=== PATIENT | male | born 1965 | race Caucasian/White ===

== ENCOUNTER 2022-05-26 13:14 | Inpatient (IN) | payer MEDICAID ==
[~2022-05-26] VITALS: Ht 162.6 cm; Wt 77.1 kg
[2022-05-26] MEDS ORDERED: ONDANSETRON HCL 4MG/2ML INJ IV STA (14:27)
[2022-05-26] MEDS ORDERED: MORPHINE SULFATE 4 MG/ML CPJ (NOT FOR IM USE) IV STA (14:27)
[2022-05-26] MEDS ORDERED: SODIUM CHLORIDE 0.9% 1,000 ML IV ONE (14:30)
[2022-05-26 14:50] LABS: BASOPHILS % 0.6 % (0.0-2.0); EOSINOPHILS % 0.5 % (0.0-5.0); HEMATOCRIT. 38.1 % (42.0-52.0); HEMOGLOBIN. 12.6 g/dL (14.0-18.0); LYMPHOCYTES % 17.8 % (20.0-50.0); MEAN CORPUSCULAR HEMOGLOBIN 31.3 pg (28.0-32.0); MEAN CORPUSCULAR VOLUME 94.3 fL (80.0-94.0); MEAN PLATELET VOLUME 8.6 fl (7.4-10.4); MONOCYTES % 7.8 % (2.0-8.0); NEUTROPHILS % 73.3 % (40.0-76.0); PLATELET 163 x1000/uL (130-400); RED BLOOD CELL COUNT 4.04 mill/uL (4.7-6.1); RED CELL DISTRIBUTION WIDTH 14.7 % (11.6-14.6)
[2022-05-26 14:58] LABS: CHLORIDE 104 mEq/L (98-107)
[2022-05-26 14:59] LABS: INR 1.3; PROTHROMBIN TIME 13.4 sec (9.6-11.0)
[2022-05-26] MEDS ORDERED: PIPERACILLIN/TAZ 3.375G PREMIX 50 ML IV NR (15:30)
[2022-05-26] MEDS ORDERED: SODIUM CHLORIDE 0.9% 1000ML BAG (SEPSIS BOLUS) IV NR (15:30)
[2022-05-26] MEDS ORDERED: SODIUM CHLORIDE 0.9% 1000ML BAG (SEPSIS BOLUS) IV ONE (15:30)
[2022-05-26] MEDS ORDERED: KETOROLAC 30MG/ML VIAL IV ONE (16:00)
[2022-05-26 16:27] LABS: CLARITY URINE CLEAR (CLEAR); COLOR URINE DARK YELLOW (YELLOW); KETONES URINE TRACE (NEGATIVE); LEUKOCYTE ESTERASE URINE TRACE (NEGATIVE); NITRITE URINE NEGATIVE (NEGATIVE); OCCULT BLOOD URINE NEGATIVE (NEGATIVE); PROTEIN URINE TRACE (NEGATIVE); SPECIFIC GRAVITY URINE 1.034 (1.005-1.030)
[2022-05-26 22:30] VITALS: BP 160/78
[2022-05-26] MEDS ORDERED: DEXTROSE 50% WATER 50ML SYRINGE IV PRN (23:30)
[2022-05-26] MEDS: ENOXAPARIN 40MG/0.4ML SYR SUBCUT SCH (23:56)
[2022-05-27] VITALS: BP 119/71
[2022-05-27 04:00] VITALS: BP 126/82
[2022-05-27] MEDS: PIPERACILLIN/TAZOBACTAM 3.375 G in DEXTROSE 5% WATER 50 ML IV SCH ×3 (06:04→21:18)
[2022-05-27 07:23] LABS: BASOPHILS % 1.1 % (0.0-2.0); EOSINOPHILS % 3.4 % (0.0-5.0); HEMATOCRIT. 31.7 % (42.0-52.0); HEMOGLOBIN. 10.7 g/dL (14.0-18.0); LYMPHOCYTES % 25.6 % (20.0-50.0); MEAN CORPUSCULAR HEMOGLOBIN 32.1 pg (28.0-32.0); MEAN CORPUSCULAR VOLUME 95.2 fL (80.0-94.0); MEAN PLATELET VOLUME 8.2 fl (7.4-10.4); MONOCYTES % 13.2 % (2.0-8.0); NEUTROPHILS % 56.7 % (40.0-76.0); PLATELET 119 x1000/uL (130-400); RED BLOOD CELL COUNT 3.33 mill/uL (4.7-6.1); RED CELL DISTRIBUTION WIDTH 14.7 % (11.6-14.6)
[2022-05-27 07:28] LABS: CHLORIDE 111 mEq/L (98-107)
[2022-05-27] MEDS: BLOOD SUGAR DIAGNOSTIC STRIP TEST SCH ×4 (07:41→21:16)
[2022-05-27 08:00] VITALS: BP 138/90
[2022-05-27] MEDS: LISINOPRIL 20MG TABLET PO SCH (08:36)
[2022-05-27] MEDS: METFORMIN HCL 500MG TABLET PO SCH ×2 (08:36→17:51)
[2022-05-27] MEDS: ENOXAPARIN 40MG/0.4ML SYR SUBCUT SCH (08:37)
[2022-05-27] MEDS: INSULIN LISPRO 100 UNITS/ML SUBCUT SCH ×4 (08:44→21:16)
[2022-05-27] MEDS ORDERED: ASPIRIN 81MG TABLET PO SCH (09:00)
[2022-05-27] MEDS ORDERED: INFLUENZA VACCINE 05/PF 0.5 ML SYRINGE IM ONE (11:00)
[2022-05-27 12:00] VITALS: BP 113/85
[2022-05-27] MEDS: FUROSEMIDE 40MG TABLET PO SCH ×2 (12:50→20:45)
[2022-05-27] MEDS ORDERED: INSULIN GLARGINE 100 UNITS/ML SUBCUT NR (13:18)
[2022-05-27 16:00] VITALS: BP 124/76
[2022-05-27 20:00] VITALS: BP 106/73
[2022-05-27] MEDS: INSULIN GLARGINE 100 UNITS/ML SUBCUT SCH (21:21)
[2022-05-28] VITALS: BP 108/70
[2022-05-28] MEDS: HYDROCODONE/ACETAMINOPHEN 5/325MG TABLET PO PRN ×4 (04:46→22:21)
[2022-05-28] MEDS: PIPERACILLIN/TAZOBACTAM 3.375 G in DEXTROSE 5% WATER 50 ML IV SCH (05:52)
[2022-05-28] MEDS: BLOOD SUGAR DIAGNOSTIC STRIP TEST SCH ×4 (06:47→21:16)
[2022-05-28] MEDS: INSULIN LISPRO 100 UNITS/ML SUBCUT SCH ×4 (07:50→21:00)
[2022-05-28] MEDS: ENOXAPARIN 40MG/0.4ML SYR SUBCUT SCH (07:57)
[2022-05-28 08:00] VITALS: BP 88/54
[2022-05-28] MEDS: LISINOPRIL 20MG TABLET PO SCH (09:00)
[2022-05-28] MEDS: SPIRONOLACTONE 25MG TABLET PO SCH (09:00)
[2022-05-28] MEDS: METFORMIN HCL 500MG TABLET PO SCH ×2 (09:04→17:50)
[2022-05-28] MEDS: FUROSEMIDE 40MG TABLET PO SCH ×2 (09:04→21:15)
[2022-05-28] MEDS: INSULIN GLARGINE 100 UNITS/ML SUBCUT SCH ×2 (10:32→21:17)
[2022-05-28 12:00] VITALS: BP 105/72
[2022-05-28] MEDS: MEROPENEM 1,000 MG in SODIUM CHLORIDE 0.9% 100 ML IV SCH ×2 (15:02→21:16)
[2022-05-28] MEDS: LACTULOSE 20G/30ML UDC PO SCH ×2 (15:03→21:15)
[2022-05-28 16:00] VITALS: BP 119/76
[2022-05-28 20:00] VITALS: BP 144/57
[2022-05-28] MEDS ORDERED: NALOXONE HCL 0.4MG/ML VIAL IV PRN (22:00)
[2022-05-29] VITALS: BP 140/81
[2022-05-29 04:00] VITALS: BP 99/66
[2022-05-29] MEDS: LACTULOSE 20G/30ML UDC PO SCH ×2 (05:39→14:00)
[2022-05-29] MEDS: MEROPENEM 1,000 MG in SODIUM CHLORIDE 0.9% 100 ML IV SCH ×2 (05:39→16:00)
[2022-05-29 06:58] LABS: HEMATOCRIT. 33.7 % (42.0-52.0); HEMOGLOBIN. 11.2 g/dL (14.0-18.0); MEAN CORPUSCULAR HEMOGLOBIN 31.2 pg (28.0-32.0); MEAN CORPUSCULAR VOLUME 93.5 fL (80.0-94.0); PLATELET 131 x1000/uL (130-400); RED CELL DISTRIBUTION WIDTH 14.7 % (11.6-14.6)
[2022-05-29 07:36] LABS: CHLORIDE 106 mEq/L (98-107)
[2022-05-29] MEDS ORDERED: LIDOCAINE HCL 1% 30ML VIAL (10MG/ML) ONE (07:36)
[2022-05-29] MEDS: INSULIN LISPRO 100 UNITS/ML SUBCUT SCH ×2 (07:50→13:10)
[2022-05-29] MEDS: BLOOD SUGAR DIAGNOSTIC STRIP TEST SCH ×2 (07:53→13:08)
[2022-05-29 08:00] VITALS: BP 134/101
[2022-05-29] MEDS: LISINOPRIL 20MG TABLET PO SCH (09:04)
[2022-05-29] MEDS: METFORMIN HCL 500MG TABLET PO SCH (09:04)
[2022-05-29] MEDS: FUROSEMIDE 40MG TABLET PO SCH (09:04)
[2022-05-29] MEDS: SPIRONOLACTONE 25MG TABLET PO SCH (09:04)
[2022-05-29] MEDS: HYDROCODONE/ACETAMINOPHEN 5/325MG TABLET PO PRN (09:14)
[2022-05-29] MEDS ORDERED: LIDOCAINE HCL 1% 10 MG/ML 10ML VIAL ONE (09:37)
[2022-05-29] MEDS: INSULIN GLARGINE 100 UNITS/ML SUBCUT SCH (10:00)
[2022-05-29] MEDS ORDERED: FURO-151 MT (11:12)
[2022-05-29] MEDS ORDERED: SPIR50TA5 MT (11:12)
[2022-05-29 12:00] VITALS: BP 96/65
[2022-05-29 16:00] VITALS: BP 106/68
[2022-05-29 16:07] VITALS: BP 106/68
[2022-05-29 18:41] LABS: PLATELET ESTIMATE NORMAL
== END 2022-05-29 16:29 | disposition home health service (06) | DRG 720 ==
LOC: ER 13:18 → 6EST 16:26 → ER 21:20
PROVIDERS: ADMIT Internal Medicine; ATTEND Internal Medicine
PROC: 0W9G3ZZ Drainage of Peritoneal Cavity, Percutaneous Approach (ICD-10-PCS; principal; 2022-05-29)
PROC: 02HV33Z Insertion of Infusion Device into Superior Vena Cava, Percutaneous Approach (ICD-10-PCS; 2022-05-29)
PROC: B548ZZA Ultrasonography of Superior Vena Cava, Guidance (ICD-10-PCS; 2022-05-29)
PROC: B5181ZA Fluoroscopy of Superior Vena Cava using Low Osmolar Contrast, Guidance (ICD-10-PCS; 2022-05-29)
DX: A41.9 Sepsis, unspecified organism (principal); R18.8 Other ascites; E44.0 Moderate protein-calorie malnutrition; K74.60 Unspecified cirrhosis of liver; N39.0 Urinary tract infection, site not specified; D64.9 Anemia, unspecified; E11.65 Type 2 diabetes mellitus with hyperglycemia; B96.20 Unspecified Escherichia coli [E. coli] as the cause of diseases classified elsewhere; F10.21 Alcohol dependence, in remission; Z20.822 Contact with and (suspected) exposure to COVID-19; I10 Essential (primary) hypertension; F17.200 Nicotine dependence, unspecified, uncomplicated; Z68.30 Body mass index [BMI] 30.0-30.9, adult; Z68.29 Body mass index [BMI] 29.0-29.9, adult
CPT/HCPCS: 36415; 36573; 49083; 71045; 74176; 80048; 80053; 81003; 82962; 83036; 83605; 84145; 85025; 87186; 87426; 93005; 99291; C1725; C1760; J1650; J1815; J1885; J2185; J2270; J2405; J2543; J3490; J7030; J7050; J7060

== ENCOUNTER 2022-06-30 12:52 | Inpatient (IN) | payer MEDICAID ==
[~2022-06-30] VITALS: Ht 167.6 cm; Wt 66.7 kg
[~2022-06-30 12:52] MED LIST: FURO-151 MT; SPIR50TA5 MT
[2022-07-01 03:28] LABS: INR 1.2; PROTHROMBIN TIME 12.7 sec (9.6-11.0)
[2022-07-01 03:34] LABS: BASOPHILS % 0.9 % (0.0-2.0); EOSINOPHILS % 3.5 % (0.0-5.0); HEMOGLOBIN. 11.5 g/dL (14.0-18.0); LYMPHOCYTES % 25.5 % (20.0-50.0); MEAN CORPUSCULAR HEMOGLOBIN 31.5 pg (28.0-32.0); MEAN CORPUSCULAR VOLUME 93.3 fL (80.0-94.0); MEAN PLATELET VOLUME 7.6 fl (7.4-10.4); MONOCYTES % 11.9 % (2.0-8.0); NEUTROPHILS % 58.2 % (40.0-76.0); PLATELET 122 x1000/uL (130-400); RED BLOOD CELL COUNT 3.64 mill/uL (4.7-6.1); RED CELL DISTRIBUTION WIDTH 15.6 % (11.6-14.6)
[2022-07-01 03:47] LABS: CHLORIDE 112 mEq/L (98-107)
[2022-07-01 10:22] VITALS: BP 117/87
[2022-07-01] MEDS ORDERED: ONDANSETRON HCL 4MG/2ML INJ IV PRN (11:30)
[2022-07-01] MEDS ORDERED: INFLUENZA VACCINE IM ONE (11:30)
[2022-07-01 12:00] VITALS: BP 128/91
[2022-07-01] MEDS ORDERED: DEXTROSE 50% WATER 50ML SYRINGE IV PRN (13:00)
[2022-07-01 16:00] VITALS: BP 121/86
[2022-07-01] MEDS: FUROSEMIDE 40MG/4ML VIAL IVP SCH (17:53)
[2022-07-01] MEDS: INSULIN LISPRO 100 UNITS/ML SUBCUT SCH ×2 (17:57→21:26)
[2022-07-01] MEDS: BLOOD SUGAR DIAGNOSTIC STRIP TEST SCH ×2 (18:03→21:23)
[2022-07-01 20:00] VITALS: BP 125/80
[2022-07-02] VITALS: BP 124/82
[2022-07-02 04:00] VITALS: BP 130/86
[2022-07-02] MEDS: BLOOD SUGAR DIAGNOSTIC STRIP TEST SCH ×3 (06:29→17:23)
[2022-07-02 07:11] LABS: INR 1.3; PARTIAL THROMBOPLASTIN TIME 32.6 sec (23.4-31.0); PROTHROMBIN TIME 13.3 sec (9.6-11.0)
[2022-07-02 07:16] LABS: CHLORIDE 109 mEq/L (98-107)
[2022-07-02 08:00] VITALS: BP 105/76
[2022-07-02] MEDS: FUROSEMIDE 40MG/4ML VIAL IVP SCH ×2 (08:52→17:20)
[2022-07-02] MEDS: INSULIN LISPRO 100 UNITS/ML SUBCUT SCH ×3 (08:56→17:23)
[2022-07-02 10:46] LABS: *AMPHETAMINES SCREEN URINE NEGATIVE (NEGATIVE); *BARBITURATES SCREEN URINE NEGATIVE (NEGATIVE); *BENZODIAZEPINES SCREEN URINE NEGATIVE (NEGATIVE); *COCAINE SCREEN URINE NEGATIVE (NEGATIVE); CANNABINOID URINE SCREEN NEGATIVE (NEGATIVE); METHADONE URINE SCREEN NEGATIVE (NEGATIVE); OPIATES URINE SCREEN NEGATIVE (NEGATIVE); PHENCYCLIDINE URINE SCREEN NEGATIVE (NEGATIVE)
[2022-07-02 12:00] VITALS: BP 125/89
[2022-07-02] MEDS ORDERED: FURO-151 MT (12:36)
[2022-07-02] MEDS ORDERED: SPIR50TA5 MT (12:36)
[2022-07-02 16:00] VITALS: BP 112/77
[2022-07-02 17:01] VITALS: BP 125/89
== END 2022-07-02 18:25 | disposition home or self-care (01) | DRG 280 ==
LOC: ER 13:35 → 6EST 07-01 06:08 → EDBEDREQTM 07-01 06:11 → EDBEDREQ 07-01 06:11 → ENRESERV 07-01 08:30
PROVIDERS: ADMIT Internal Medicine; ATTEND Internal Medicine
PROC: 0W9G3ZZ Drainage of Peritoneal Cavity, Percutaneous Approach (ICD-10-PCS; principal; 2022-07-02)
DX: K70.31 Alcoholic cirrhosis of liver with ascites (principal); E43 Unspecified severe protein-calorie malnutrition; D64.9 Anemia, unspecified; E11.9 Type 2 diabetes mellitus without complications; B18.2 Chronic viral hepatitis C; E87.5 Hyperkalemia; F10.21 Alcohol dependence, in remission; I10 Essential (primary) hypertension; Z68.23 Body mass index [BMI] 23.0-23.9, adult; Z86.19 Personal history of other infectious and parasitic diseases
CPT/HCPCS: 36415; 49083; 80048; 80053; 80305; 82962; 85025; 99285; J1815; J1940